=== PATIENT | male | born 1960 | race Caucasian/White ===

== ENCOUNTER 2017-02-21 12:46 | Emergency (ER) | payer OTHER ==
[2017-02-21] MEDS ORDERED: ONDANSETRON HCL 4 MG/2 ML SOL IV ONE (12:56)
[2017-02-21] MEDS ORDERED: HYDROMORPHONE HCL 2 MG/ML SOL IV ONE (12:56)
[2017-02-21] MEDS ORDERED: HYDROMORPHONE 1 MG/ML SYRINGE ONE ×2 (12:59→13:20)
[2017-02-21] MEDS ORDERED: ONDANSETRON HCL 4 MG/2 ML SOL ONE (12:59)
[2017-02-21] MEDS ORDERED: HYDROMORPHONE 1 MG/ML SYRINGE IV ONE ×2 (13:04→13:16)
[2017-02-21] MEDS ORDERED: SODIUM CHLORIDE 0.9% FLUSH 10 ML SOL IV PRN (13:16)
[2017-02-21] MEDS ORDERED: PIPERACILLIN/TAZOBACT 3.375 GM PDS IV ONE (13:41)
[2017-02-21 20:27] VITALS: PULSE 58; RESP 18; O2SAT 96
[2017-02-21 20:30] VITALS: BP 138/78; TEMP 97.5
== END 2017-02-21 15:00 | disposition home or self-care (01) | DRG 563 ==
LOC: ED 12:46
DX: S43.014A Anterior dislocation of right humerus, initial encounter (principal); M21.821 Other specified acquired deformities of right upper arm; X50.0XXA Overexertion from strenuous movement or load, initial encounter
CPT/HCPCS: 73020; 73030; 99285; J2405; J2543; J1170; J2704